=== PATIENT | female | born 1975 | race Two or more races ===

== ENCOUNTER 2020-01-14 14:04 | Outpatient (REF) | payer MEDICAID, SELFPAY | END 2020-01-14 14:05 | disposition home or self-care (01) | LOC: HO.LAB 14:04 | PROVIDERS: PCP Student in an Organized Health Care Education/Training Program; Visit Provider Internal Medicine | DX: Z20.828 Contact with and (suspected) exposure to other viral communicable diseases (principal) | CPT/HCPCS: 87635 ==